=== PATIENT | male | born 2000 | race Caucasian/White ===

== ENCOUNTER 2021-05-03 07:47 | Outpatient (REF) | payer MEDICAID, SELFPAY ==
[2021-05-03 09:03] LABS: COVID-19 Test Positive (Negative); IDNOW Serial# 55D5AD1C
== END 2021-05-03 07:48 | disposition home or self-care (01) ==
LOC: HO.LAB 07:47
PROVIDERS: Visit Provider Internal Medicine
DX: Z20.822 Contact with and (suspected) exposure to COVID-19 (principal)
CPT/HCPCS: 36415; 87635; C9803

== ENCOUNTER 2021-08-11 13:47 | Emergency (ER) | payer MEDICAID, SELFPAY ==
[2021-08-11 14:48] VITALS: BP 125/66; PULSE 60; RESP 16; TEMP 35.9; O2SAT 100; BMI 23.7
[2021-08-11 17:02] VITALS: BP 115/78; PULSE 55; RESP 16; TEMP 36.6; O2SAT 100
--- NOTE | 2021-08-11 17:09 | ED.GENADULT ---
HPI - General Adult General Chief complaint: Wound/Laceration Stated complaint: Stepped on charlee nail Time Seen by Provider: 08/11/21 17:06 Source: patient Mode of arrival: ambulatory Limitations: no limitations History of Present Illness HPI narrative: 21-year-old male presents to ED for right foot stepped on charlee nail. Patient was at work and the nail went go to his shoes poke his middle toe. Patient took his shoes off there was slight bleeding at the superficial cut. Patient states nail did do not get stuck in his foot. Patient states when he felt poke he moves his foot immediately. Patient states nail was on the ground. Related Data Previous Rx's Medication Instructions Recorded ciprofloxacin HCl 500 mg tablet 500 mg PO Q12H 7 Days #14 tab 08/11/21 Allergies Allergy/AdvReac Type Severity Reaction Status Date / Time No Known Allergies Allergy Verified 08/11/21 14:47 [No Known Allergies*] Review of Systems Review of Systems: Stepped on charlee nail Yes all other systems are reviewed and are negative [facility] Past Medical History Medical History (Updated 08/11/21 @ 17:33 by COURTNEY Moy) Pneumothorax on right Social History Social History Advance Directives: No Physical Exam ED Vital Signs: Vital Signs - 24 hr 08/11/21 14:48 08/11/21 17:02 Temperature 96.6 F L 97.8 F Pulse Rate 60 55 Respiratory Rate 16 16 Blood Pressure 125/66 115/78 Pulse Oximetry 100 100 BMI result Body Mass Index 23.7 Const General: cooperative, healthy appearing, comfortable, no acute distress, well developed, alert, awake and Physically active Orientation/consciousness: oriented to person, oriented to place, oriented to time and patient oriented x3 HENMT Head: Yes normal to inspection, Yes No palpable skull fracture present, Yes normocephalic and Yes atraumatic Eyes General: appearance normal, both eyes and all related structures Neck Neck: Yes normal visual inspection, Yes full ROM, Yes no lymphadenopathy, Yes no meningeal signs, Yes trachea midline, Yes supple, No anterior neck swelling and No tender Chest Chest palpation & inspection: normal inspection of the chest and normal palpation of entire chest wall Resp Effort & Inspection: normal respiratory effort and able to speak in complete sentences Auscultation: clear to auscultation bilaterally Cardio Jugular venous distension: no JVD Heart sounds: S1 normal heart sound present and S2 normal heart sound present GI Inspection: Yes normal to inspection and No abdominal wall ecchymosis Palpation (GI): Soft to palpation, not firm, nontender, no guarding and not rigid General: No CVA tenderness and Yes no CVA tenderness Back/Spine/Pelvis Back: no CVA tenderness, No CVA tenderness and No back tenderness Skin General skin exam: no rashes or lesions noted and elasticity normal Neuro General: oriented to person, oriented to place, oriented to time, patient oriented x3, gait normal, no meningeal signs and CN's II-XI intact bilaterally Cranial nerves: Yes CN's II-XII intact bilaterally Extrem Ankle/foot/toe images: 1. Very small abrasion. Negative for puncture. Capillary refill intact. Patient has complete range of motion of toe. No other signs of trauma. Motor/neuro/vascular exam intact Psych Appearance: grossly normal, well kempt and not disheveled Course Course Course Narrative: Tdap ordered. Reevaluation(s) Reevaluation #1: No need for imaging. Only superficial abrasion of foot. Not suspecting foreign body. Patient will be discharged with [facility] Medical Decision Making MDM Narrative Medical decision making narrative: Abrasion Discharge Plan Discharge Clinical Impression: Abrasion Patient Disposition: Home, Self-Care Instructions: Abrasion (ED) Additional Instructions: Will be discharged with antibiotics. Return to the ED for any toe swelling, redness, pus discharge, foul odor, fever, or chills. Please follow-up with primary care provider Prescriptions: New ciprofloxacin HCl 500 mg tablet 500 mg PO Q12H 7 Days Qty: 14 0RF Referrals: [facility] [Provider Group] (Stepped on charlee nail.) Stand Alone Forms: Work/School Release Interventions: ED Discharge Assessment Last Done: 08/11/21 17:50 Discharge Date/Time: 08/11/21 17:54 Print Language: [place]
[2021-08-11] MEDS: Diphth,Pertus(ACell),Tet Adult 0.5 ML SYRINGE IM (17:17)
== END 2021-08-11 17:54 | disposition home or self-care (01) ==
PROVIDERS: Emergency Provider Internal Medicine
DX: S90.414A Abrasion, right lesser toe(s), initial encounter (principal); M79.671 Pain in right foot; Y28.9XXA Contact with unspecified sharp object, undetermined intent, initial encounter; Y93.9 Activity, unspecified; Y92.9 Unspecified place or not applicable; Y99.9 Unspecified external cause status
CPT/HCPCS: 90471; 90715; 96372; 99283; 99284

== ENCOUNTER 2021-09-04 06:08 | Emergency (ER) | payer MEDICAID, SELFPAY ==
--- NOTE | ~2021-09-04 | XR_ITS ---
EXAMINATION: XR CHEST CLINICAL INFORMATION: Cough COMPARISON: 11/09/2019 TECHNIQUE: Frontal view of the chest was obtained. FINDINGS: Lungs are well-inflated and clear. Trachea is midline in position. No interstitial disease, consolidation or mass. No pleural effusion or pneumothorax. Cardiac silhouette and pulmonary vessels are normal in size. The mediastinum and tracey have normal contour. The visualized bones and upper abdomen are unremarkable. XR/XR chest 1V IMPRESSION: No acute cardiopulmonary abnormality.
[2021-09-04 06:48] VITALS: BP 119/75; PULSE 101; RESP 22; TEMP 38.1; O2SAT 99; BMI 52.2
--- NOTE | 2021-09-04 07:07 | ED.GENADULT ---
HPI - General Adult General Chief complaint: General Medical Stated complaint: flu symptoms Time Seen by Provider: 09/04/21 06:37 Source: patient Mode of arrival: ambulatory Limitations: no limitations History of Present Illness MD complaint: flu symptoms Onset (ago): day(s) (1) Location: chest, upper extremity and lower extremity Radiation: non-radiation Severity: mild Quality: aching Pain Consistency: constant Relieving factors: other (OTC medications) Exacerbating factors: movement Associated symptoms: fever/chills, headaches, loss of appetite and malaise Treatments prior to arrival: none Related Data Previous Rx's Medication Instructions Recorded ciprofloxacin HCl 500 mg tablet 500 mg PO Q12H 7 Days #14 tab 08/11/21 ibuprofen 600 mg tablet 600 mg PO Q6H PRN #30 tab 09/04/21 ondansetron 4 mg disintegrating 4 mg PO Q8H PRN #20 tab 09/04/21 tablet oseltamivir 75 mg capsule (Tamiflu) 75 mg PO BID 5 Days #10 cap 09/04/21 Allergies Allergy/AdvReac Type Severity Reaction Status Date / Time No Known Allergies Allergy Verified 08/11/21 14:47 [No Known Allergies*] Review of Systems Review of Systems: Constitutional : positive Fever, positive Chills, positive fatigue, positive Malaise ENT/Mouth : positive sore throat, positive runny nose Eyes: No Discharge Cardiovascular : No Chest Pain, No SOB Respiratory : pos Cough, No Sputum Gastrointestinal : No Nausea, No Vomiting, No Diarrhea Genitourinary : No Dysuria, No Urinary Frequency Musculoskeletal : positive Myalgia Skin : No rash Neuro : pos Headache PMFSH Past Medical History Attestation statement: The following information was validated with the patient. Medical History Pneumothorax on right Social History Social History (Updated 09/04/21 @ 07:33 by Sera Au DO) Patient Tobacco Use Status: Never used Tobacco Advance Directives: No Advance Directives Information Provided: Yes Physical Exam ED Vital Signs: Vital Signs - 24 hr 09/04/21 06:48 Temperature 100.6 F H Pulse Rate 101 H Respiratory Rate 22 H Blood Pressure 119/75 Pulse Oximetry 99 BMI result Body Mass Index 52.2 Appearance: Alert. Oriented X3. No acute distress. Eyes: Pupils equal, round and reactive to light. ENT: Pharynx normal. Neck: Normal inspection. Neck supple. CVS: tachycardia heart rate and rhythm. Pulses normal. Respiratory: No respiratory distress. Breath sounds normal. Abdomen: Soft and non-tender. Skin: Skin warm and dry. Normal skin color. Normal skin turgor. Extremities: No lower extremity edema. No calf ttp Neuro: Oriented X 3. No motor deficit. No sensory deficit. Medical Decision Making MDM Narrative Medical decision making narrative: 21 yo male hx of PTX here with flu like illness not toxic no resp distress does feel chest is tight + for flu A able to tolerate PO at home - at this time in window for tamiflu. CXR given chest tightness and hx of PTX. Able to be managed as outpatient. Lab Data Labs: Lab Results 09/04/21 09/04/21 Range/Units 06:42 06:42 COVID-19 (EDY) Negative (Negative) COVID-19 Clin Com See Note Influenza Type A (KEISHA) Positive A (Negative) Influenza Type B (KEISHA) Negative (Negative) Influenza A & B Note See Note Discharge Plan Discharge Clinical Impression: Influenza A Patient Disposition: Home, Self-Care Instructions: Influenza (ED) Additional Instructions: return to ED for any worsening symptoms or concerns CHEST xray negative Prescriptions: New ibuprofen 600 mg tablet 600 mg PO Q6H PRN (Reason: pain) Qty: 30 0RF ondansetron 4 mg tablet,disintegrating 4 mg PO Q8H PRN (Reason: nausea and vomiting) Qty: 20 0RF oseltamivir [Tamiflu] 75 mg capsule 75 mg PO BID 5 Days Qty: 10 0RF No Action ciprofloxacin HCl 500 mg tablet 500 mg PO Q12H 7 Days Qty: 14 0RF Stand Alone Forms: Work/School Release
[2021-09-04 07:09] LABS: COVID-19 Test Negative (Negative); IDNOW Serial# 16C4AD1C; Influenza A Positive (Negative); Influenza B2 Negative (Negative)
[2021-09-04] MEDS: Ibuprofen 600 MG TABLET PO (07:21)
== END 2021-09-04 08:09 | disposition home or self-care (01) ==
PROVIDERS: Emergency Provider Emergency Medicine
DX: J10.1 Influenza due to other identified influenza virus with other respiratory manifestations (principal); Z20.822 Contact with and (suspected) exposure to COVID-19
CPT/HCPCS: 71045; 87502; 87635; 99283

== ENCOUNTER 2023-04-07 12:15 | Emergency (ER) | payer MEDICAID, SELFPAY ==
--- NOTE | ~2023-04-07 | XR_ITS ---
EXAMINATION: XR CHEST 2 VIEW CLINICAL INFORMATION: Chest pressure COMPARISON: 09/04/2021 TECHNIQUE: PA and lateral views of the chest obtained. FINDINGS: The lungs are clear. There are no pleural effusions. The cardiomediastinal silhouette is normal. XR/XR chest 2V IMPRESSION: No acute cardiopulmonary disease.
--- NOTE | 2023-04-07 12:17 | ECG_ITS ---
Test Reason : CHEST PRESSURE Blood Pressure : / mmHG Vent. Rate : 110 BPM Atrial Rate : 110 BPM P-R Int : 174 ms QRS Dur : 104 ms QT Int : 318 ms P-R-T Axes : 082 087 041 degrees QTc Int : 430 ms Sinus tachycardia Incomplete right bundle branch block Nonspecific T wave abnormality Abnormal ECG No previous ECGs available Referred By: Meghan Mari Electronically Signed By:SWAPNIL CASTAÑEDA
[2023-04-07 13:05] VITALS: BP 131/87; PULSE 72; RESP 18; TEMP 36.8; O2SAT 100; BMI 25.6
--- NOTE | 2023-04-07 13:05 | ED_ITS ---
HPI - General Adult General Chief complaint: Chest Pain Stated complaint: Chest pressure Time Seen by Provider: 04/07/23 19:24 Source: patient Mode of arrival: ambulatory Limitations: no limitations History of Present Illness HPI narrative: Patient is a 22-year-old male with history of spontaneous pneumothorax presenting to the emergency department with complaint of chest pressure and palpitations since last night. States palpitations occurred last night, but have since resolved, pressure has persisted. Denies chest pain or shortness of breath. Denies cough, fever, chills. Denies nausea or vomiting. Denies recent calf pain or swelling. MD complaint: chest pressure Onset (ago): hour(s) Location: chest Severity: mild Quality: other (pressure) Relieving factors: none Exacerbating factors: none Associated symptoms: denies other symptoms Treatments prior to arrival: none Related Data Previous Rx's Medication Instructions Recorded ciprofloxacin HCl 500 mg tablet 500 mg PO Q12H 7 days #14 tabs 08/11/21 ibuprofen 600 mg tablet 600 mg PO Q6H PRN pain #30 tabs 09/04/21 ondansetron 4 mg disintegrating 4 mg PO Q8H PRN nausea and 09/04/21 tablet vomiting #20 tabs oseltamivir 75 mg capsule (Tamiflu) 75 mg PO BID 5 days #10 caps 09/04/21 Allergies Allergy/AdvReac Type Severity Reaction Status Date / Time No Known Allergies Allergy Verified 08/11/21 14:47 [No Known Allergies*] Review of Systems 2 Review of Systems: As per HPI Yes all other systems are reviewed and are negative Constitutional: Constitutional: Reports as per HPI [facility] Past Medical History Medical History Pneumothorax on right Social History Social History (Updated 09/04/21 @ 07:33 by Edwige Au DO) Patient Tobacco Use Status: Never used Tobacco Physical Exam ED Vital Signs: Vital Signs - 24 hr 04/07/23 13:05 04/07/23 18:46 Temperature 98.2 F 98.2 F Pulse Rate 72 81 Respiratory Rate 18 18 Blood Pressure 131/87 147/86 H Pulse Oximetry 100 99 Oxygen Delivery Method Room Air Room Air BMI result Body Mass Index 25.6 Vital signs have been reviewed and appear to be correct. Blood pressure normal. Heart rate normal. Respiratory rate normal. Temperature normal. Oxygen saturation normal. Const General: cooperative, healthy appearing and no acute distress Orientation/consciousness: oriented to person, oriented to place, oriented to time and patient oriented x3 Limitations: no limitations HENMT Head: Yes normocephalic and Yes atraumatic Ears: external ears normal General nose exam: Normal external nose present Face and sinus: Yes face symmetric Mouth: oropharynx normal and moist mucous membranes Throat: Yes uvula midline Eyes Pupils: Equal, round and reactive pupils present Neck Neck: Yes normal visual inspection and Yes supple Resp Effort & Inspection: normal respiratory effort and able to speak in complete sentences Auscultation: clear to auscultation bilaterally Cardio Rate: regular rate Rhythm: regular rhythm Heart sounds: S1 normal heart sound present and S2 normal heart sound present GI Palpation (GI): Soft to palpation and nontender Auscultation: normoactive bowel sounds General: Yes no CVA tenderness Back/Spine/Pelvis Back: no CVA tenderness Skin General skin exam: elasticity normal and turgor normal Neuro General: oriented to person, oriented to place, oriented to time, patient oriented x3, moves all extremities, no focal motor deficits and CN's II-XI intact bilaterally Cranial nerves: Yes Equal, round and reactive pupils present Cognition (Neuro): normal cognition Extrem General: Yes full ROM, Yes no pedal edema and Yes no calf tenderness Psych Mental Status: mental status grossly normal Affect: normal affect Thought process: Normal thought process present Medical Decision Making Medical Decision Making MDM Narrative: Patient is a 22-year-old male with history of spontaneous pneumothorax presenting to the emergency department with complaint of chest pressure and palpitations since last night. On exam patient is awake, A+Ox3, VS WNL, afebrile, normal neurological exam without focal deficits, physical exam findings as above. Given reported symptoms and physical exam findings, initial differential includes pneumothorax, cardiac dysrhythmia, electrolyte abnormality, pneumonia. Less likely ACS but will obtain EKG and troponin. Labs notable for no leukocytosis, no anemia, no significant electrolyte abnormalities, negative troponin. HEART score of 1. EKG shows sinus tachycardia. X-ray notable for no evidence of pneumothorax or pneumonia. My interpretation is in agreement with the radiologist's interpretation. All results discussed with patient all questions answered. Feel patient is stable for discharge home with follow-up with PCP this week. Return precautions discussed. Patient verbalized understanding agreement with plan. Differential Diagnosis Differential Diagnoses: The differential diagnosis associated with the presentation includes As per MDM. Admission/Observation Consideration of admission/observation: Escalation of care including admission/observation considered Lab Data [facility] Lab Attestation statement: I reviewed the patient's lab results. As per MDM. 04/07/23 13:51 04/07/23 13:51 Labs: Lab Results 04/07/23 Range/Units 13:51 WBC 5.8 (4.8-10.8) X10*3/uL RBC 5.55 (4.60-5.80) X10*6/uL Hgb 15.9 (14.0-18.0) g/dl Hct 46.6 (42.0-52.0) % MCV 84.0 (80.0-98.0) fL MCH 28.6 (27.0-33.0) pg MCHC 34.1 (31.0-36.0) g/dl RDW 11.9 (11.0-16.0) % Plt Count 308 (160-400) X10*3/uL MPV 9.3 L (9.4-12.4) fL Immature Gran % (Auto) 0.2 (0.0-0.4) % Neut % (Auto) 58.1 (45-73) % Lymph % (Auto) 29.9 (20-40) % [place] % (Auto) 9.9 (2-11) % Eos % (Auto) 1.0 (0-4) % Baso % (Auto) 0.9 (0-2) % Lymph # (Auto) 1.7 (1.2-4.9) X10*3/uL [place] # (Auto) 0.6 (0.1-1.2) X10*3/uL Eos # (Auto) 0.1 (0.0-0.4) X10*3/uL Baso # (Auto) 0.1 (0.0-0.2) X10*3/uL Abs Immat Gran (auto) 0.01 (0.00-0.03) X10*3/uL Absolute Neuts (auto) 3.4 (2.0-8.3) x10*3/uL Absolute Nucleated RBC 0.000 (0.0-0.012) X10*3/uL Nucleated RBC % (auto) 0.0 (0.0-0.2) /100WBC Sodium 136 (135-145) mmol/L Potassium 3.8 (3.3-5.1) mmol/L Chloride 101 (96-108) mmol/L Carbon Dioxide 26 (22-29) mmol/L Anion Gap 13 (12-20) BUN 11 (9-16) mg/dL Creatinine 0.90 (0.5-1.4) mg/dL Estim Creat Clear Calc 140.1 Estimated GFR > 60 Random Glucose 94 (60-115) mg/dL Calcium 9.8 (8.4-10.2) mg/dL Troponin I High Sens < 2.7 (<3.5-35.0) ng/L Independent Interpretation I performed an independent interpretation of an: EKG (Sinus tachycardia with incomplete RBBB, rate 110 beats per minute, normal WI and QT intervals) and Plain X-Ray (No evidence of pneumonia or pneumothorax) Radiology Impression Discussion of test interpretation with radiology: I have reviewed the radiologist's reading. Radiologist Impression: XR/XR chest 2V IMPRESSION: No acute cardiopulmonary disease. External Record Review External record reviewed: Inpatient record, Office record and Outpatient record Scores Heart Score History: -0- slightly suspicious ECG: -1- non specific repolarization disturbance Age: -0- < or = 45 Risk factory: -0- no risk factors known Troponin: -0- < or = normal limit Score: 1 Risk: 1.7% Discharge Plan Discharge Clinical Impression: Chest pressure Patient Disposition: Home, Self-Care Instructions: Chest Pain (DC) Additional Instructions: You were evaluated in the emergency department today for chest pressure. Your evaluation including labs, EKG, and chest x-ray has shown no signs of medical conditions requiring emergent intervention at this time, however we recommend that you follow-up with your primary care physician as soon as possible for further testing as an outpatient. Return to the emergency department if you experience worsening or uncontrolled chest pain, shortness of breath, lightheadedness, feeling faint, loss of consciousness, nausea, vomiting, or any other concerning symptoms. Prescriptions: No Action ciprofloxacin HCl 500 mg tablet 500 mg PO Q12H 7 Days Qty: 14 0RF ibuprofen 600 mg tablet 600 mg PO Q6H PRN (Reason: pain) Qty: 30 0RF ondansetron 4 mg tablet,disintegrating 4 mg PO Q8H PRN (Reason: nausea and vomiting) Qty: 20 0RF oseltamivir [Tamiflu] 75 mg capsule 75 mg PO BID 5 Days Qty: 10 0RF Stand Alone Forms: Work/School Release Interventions: ED Discharge Assessment Last Done: 04/07/23 19:30
[2023-04-07 14:04] LABS: MANUAL DIFF FLAG NO
[2023-04-07 14:08] LABS: Basophils Absolute Auto 0.1 X10*3/uL (0.0-0.2); Basophils Percent Auto 0.9 % (0-2); Eosinophils Absolute Auto 0.1 X10*3/uL (0.0-0.4); Hematocrit 46.6 % (42.0-52.0); Hemoglobin 15.9 g/dl (14.0-18.0); Imm Gran Abs Auto 0.01 X10*3/uL (0.00-0.03); Imm Gran Pct Auto 0.2 % (0.0-0.4); Lymphocytes Absolute Auto 1.7 X10*3/uL (1.2-4.9); Lymphocytes Percent Auto 29.9 % (20-40); Mean Corpuscular HGB Conc 34.1 g/dl (31.0-36.0); Mean Corpuscular Hemoglobin 28.6 pg (27.0-33.0); Mean Platelet Volume 9.3 fL (9.4-12.4); Monocytes Absolute Auto 0.6 X10*3/uL (0.1-1.2); Monocytes Percent Auto 9.9 % (2-11); Neutrophils Absolute Auto 3.4 x10*3/uL (2.0-8.3); Neutrophils Percent Auto 58.1 % (45-73); Platelet Count 308 X10*3/uL (160-400); Red Blood Count 5.55 X10*6/uL (4.60-5.80); Red Cell Distribution Width 11.9 % (11.0-16.0); White Blood Count 5.8 X10*3/uL (4.8-10.8)
[2023-04-07 14:17] LABS: Anion Gap 13 (12-20); Blood Urea Nitrogen 11 mg/dL (9-16); Calcium 9.8 mg/dL (8.4-10.2); Carbon Dioxide 26 mmol/L (22-29); Chloride 101 mmol/L (96-108); Creatinine Clr Calc Pharmacy 140.1; Estimated Glomerular Filt Rate > 60; Glucose Random 94 mg/dL (60-115); Potassium 3.8 mmol/L (3.3-5.1); Sodium 136 mmol/L (135-145)
[2023-04-07 14:27] LABS: Troponin-I High Sensitivity < 2.7 ng/L (<3.5-35.0)
[2023-04-07 18:46] VITALS: BP 147/86; PULSE 81; RESP 18; TEMP 36.8; O2SAT 99
== END 2023-04-07 19:39 | disposition home or self-care (01) ==
PROVIDERS: Registered Nurse Emergency; Emergency Provider Student in an Organized Health Care Education/Training Program
DX: R07.89 Other chest pain (principal); R00.2 Palpitations; Z79.899 Other long term (current) drug therapy
CPT/HCPCS: 36415; 71046; 80048; 84484; 85025; 93005; 99283

== ENCOUNTER → 2023-04-07 12:17 | Outpatient (BNV) | payer MEDICAID, SELFPAY | PROVIDERS: Visit Provider Internal Medicine | DX: R00.0 Tachycardia, unspecified (principal); R94.31 Abnormal electrocardiogram [ECG] [EKG] | CPT/HCPCS: 93010 ==

== ENCOUNTER 2023-04-09 08:26 | Emergency (ER) | payer MEDICAID, SELFPAY ==
--- NOTE | ~2023-04-09 | XR_ITS ---
EXAMINATION: XR CHEST CLINICAL INFORMATION: Chest tightness. COMPARISON: 04/07/2023 TECHNIQUE: 2 views of the chest were obtained. FINDINGS: The lungs are well expanded. No focal consolidation. No pleural effusion. Cardiac silhouette is within normal limits. XR/XR chest 2V IMPRESSION: No acute abnormality.
[2023-04-09 08:44] VITALS: BP 135/81; PULSE 80; RESP 16; TEMP 36.6; O2SAT 100; BMI 25.8
--- NOTE | 2023-04-09 09:05 | ECG_ITS ---
Test Reason : chest pain Blood Pressure : / mmHG Vent. Rate : 073 BPM Atrial Rate : 073 BPM P-R Int : 172 ms QRS Dur : 104 ms QT Int : 370 ms P-R-T Axes : 077 073 014 degrees QTc Int : 407 ms Normal sinus rhythm Incomplete right bundle branch block Nonspecific T wave abnormality Abnormal ECG When compared with ECG of 07-APR-2023 12:20, Vent. rate has decreased BY 37 BPM T wave inversion no longer evident in Anterior leads Referred By: Generic ED Physician Electronically Signed By:SWAPNIL CASTAÑEDA
[2023-04-09 09:19] LABS: MANUAL DIFF FLAG NO
[2023-04-09 09:24] LABS: Basophils Percent Auto 0.6 % (0-2); Eosinophils Absolute Auto 0.1 X10*3/uL (0.0-0.4); Eosinophils Percent Auto 2.2 % (0-4); Hematocrit 44.3 % (42.0-52.0); Hemoglobin 15.2 g/dl (14.0-18.0); Imm Gran Abs Auto 0.01 X10*3/uL (0.00-0.03); Imm Gran Pct Auto 0.2 % (0.0-0.4); Lymphocytes Absolute Auto 1.5 X10*3/uL (1.2-4.9); Lymphocytes Percent Auto 31.4 % (20-40); Mean Corpuscular HGB Conc 34.3 g/dl (31.0-36.0); Mean Corpuscular Hemoglobin 28.5 pg (27.0-33.0); Mean Platelet Volume 9.1 fL (9.4-12.4); Monocytes Absolute Auto 0.4 X10*3/uL (0.1-1.2); Monocytes Percent Auto 7.5 % (2-11); Neutrophils Absolute Auto 2.7 x10*3/uL (2.0-8.3); Neutrophils Percent Auto 58.1 % (45-73); Platelet Count 291 X10*3/uL (160-400); Red Blood Count 5.34 X10*6/uL (4.60-5.80); Red Cell Distribution Width 11.9 % (11.0-16.0); White Blood Count 4.7 X10*3/uL (4.8-10.8)
[2023-04-09 09:38] LABS: Alanine Aminotransferase 45 U/L (0-40); Albumin Level 4.7 g/dL (3.5-5.0); Alkaline Phosphatase 62 U/L (39-117); Anion Gap 15 (12-20); Aspartate Amino Transferase 25 U/L (5-37); Bilirubin Direct 0.2 mg/dL (0.0-0.5); Bilirubin Total 0.6 mg/dL (0.0-1.0); Blood Urea Nitrogen 10 mg/dL (9-16); Calcium 9.9 mg/dL (8.4-10.2); Carbon Dioxide 27 mmol/L (22-29); Chloride 103 mmol/L (96-108); Creatinine Clr Calc Pharmacy 137.3; Estimated Glomerular Filt Rate > 60; Glucose Random 111 mg/dL (60-115); Lipase 14 U/L (8-78); Potassium 3.7 mmol/L (3.3-5.1); Sodium 141 mmol/L (135-145); Total Protein 7.9 g/dL (6.5-8.0)
[2023-04-09 09:47] LABS: Troponin-I High Sensitivity < 2.7 ng/L (<3.5-35.0)
[2023-04-09 10:05] LABS: Influenza A PCR NEGATIVE (Negative); Influenza B PCR NEGATIVE (Negative); Resp Syncy Virus RNA Qual PCR NEGATIVE (Negative); SARS COV2 PCR INHOUSE NEGATIVE (Negative)
== END 2023-04-09 19:41 | disposition left against medical advice (07) ==
PROVIDERS: Emergency Provider Emergency Medicine
DX: R07.89 Other chest pain (principal); Z20.822 Contact with and (suspected) exposure to COVID-19; Z20.828 Contact with and (suspected) exposure to other viral communicable diseases; Z53.21 Procedure and treatment not carried out due to patient leaving prior to being seen by health care provider
CPT/HCPCS: 0241U; 71046; 80048; 80076; 83690; 84484; 85025; 93005; 99283

== ENCOUNTER → 2023-04-09 09:05 | Outpatient (BNV) | payer MEDICAID, SELFPAY | PROVIDERS: Visit Provider Internal Medicine | DX: R94.31 Abnormal electrocardiogram [ECG] [EKG] (principal) | CPT/HCPCS: 93010 ==

== ENCOUNTER 2023-04-11 20:40 | Emergency (ER) | payer MEDICAID, SELFPAY ==
--- NOTE | 2023-04-11 | ECG_ITS ---
Test Reason : CHESY PAIN Blood Pressure : / mmHG Vent. Rate : 119 BPM Atrial Rate : 000 BPM P-R Int : 000 ms QRS Dur : 108 ms QT Int : 320 ms P-R-T Axes : 000 081 063 degrees QTc Int : 451 ms Sinus tachycardia Incomplete right bundle branch block Nonspecific ST abnormality Prolonged QT Abnormal ECG When compared with ECG of 09-APR-2023 09:11, Vent. rate has increased BY 46 BPM Nonspecific T wave abnormality no longer evident in Lateral leads Referred By: Generic ED Physician Electronically Signed By:SWAPNIL CASTAÑEDA
--- NOTE | ~2023-04-11 | CT_ITS ---
EXAMINATION: CT ANGIOGRAM OF THE CHEST WITH AND WITHOUT CONTRAST (CT PULMONARY ANGIOGRAM FOR PE) CLINICAL INFORMATION: Chest discomfort, tachy, palps, arrhythmia COMPARISON: Radiographs from the same date TECHNIQUE: Prior to contrast administration, noncontrast localization images were obtained. Subsequently, multidetector volumetric imaging was performed from the thoracic inlet to below the diaphragms following the administration of 80 mL Omnipaque 350 intravenous contrast. No contrast reaction reported Sagittal, coronal, and MIP oblique sagittal reformatted images were obtained on the CT workstation, uploaded to PACS, and reviewed. This CT examination was performed using dose optimization techniques as appropriate, variously including the following: *Automated exposure control *Adjustment of mA and/or kV according to patient size (this includes techniques or standardized protocols for targeted exams where dose is matched to indication/reason for exam; i.e. extremities or head) *Use of iterative reconstruction technique Total exam dose-length product 273 mGy-cm FINDINGS: QUALITY OF STUDY/CONTRAST BOLUS: Satisfactory. PULMONARY ARTERIES: No pulmonary emboli. THORACIC AORTA: No aneurysm. LUNG: No focal consolidation, nodules or masses. PLEURA: No pleural effusion or pneumothorax. MEDIASTINUM: Normal heart size. No pericardial effusion. No hilar or mediastinal lymphadenopathy. No evidence of septal bowing or right heart strain. 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 CORONARY ARTERY CALCIFICATION: None visualized on this study. CHEST WALL/AXILLA: No axillary or internal mammary lymphadenopathy. OSSEOUS STRUCTURES: No acute or suspicious osseous abnormality. UPPER ABDOMEN: Unremarkable. No reflux of contrast into the hepatic veins to suggest elevated right heart pressures. CT/CT angio chest PE protocol IMPRESSION: 1. No evidence of pulmonary embolism. 2. No acute pulmonary findings. VTE: negative.
--- NOTE | ~2023-04-11 | XR_ITS ---
EXAMINATION: XR CHEST CLINICAL INFORMATION: Shortness of breath COMPARISON: 04/09/2023 TECHNIQUE: 2 views of the chest were obtained. FINDINGS: No focal consolidation, pulmonary edema, or pleural effusion. Stable cardiomediastinal silhouette. XR/XR chest 2V IMPRESSION: No acute cardiopulmonary findings.
--- NOTE | 2023-04-11 20:44 | PC.NURSE ---
Pt presented stating he feels his heart is racing. Vitals checked, HR 115, O2 100% on room air. EKG and lab work ordered. Pt sent back to waiting room
[2023-04-11 21:01] VITALS: BP 151/87; PULSE 124; RESP 18; TEMP 36.7; O2SAT 100; BMI 26.8
--- NOTE | 2023-04-11 21:19 | ED_ITS ---
HPI - Chest Pain General Chief Complaint: Chest Pain Stated Complaint: rapid heart rate Time Seen by Provider: 04/11/23 21:08 Source: patient and family Mode of arrival: ambulatory History of Present Illness HPI narrative: 23-year-old male without significant past medical history, no cardiac history and no family history of cardiac disease, no history of joint laxity, not on a prescribed medications, no history of anxiety, denies any current stress in his life to include no issues at work (works at [employer]), denies alcohol or drug use, does report drinking a lot of soda . States that for the past several days intermittent palpitations and when these occur he experiences chest discomfort and some mild dizziness, patient states he is mildly dizzy today. He denies shortness of breath. Related Data Previous Rx's Medication Instructions Recorded ciprofloxacin HCl 500 mg tablet 500 mg PO Q12H 7 days #14 tabs 08/11/21 ibuprofen 600 mg tablet 600 mg PO Q6H PRN pain #30 tabs 09/04/21 ondansetron 4 mg disintegrating 4 mg PO Q8H PRN nausea and 09/04/21 tablet vomiting #20 tabs oseltamivir 75 mg capsule (Tamiflu) 75 mg PO BID 5 days #10 caps 09/04/21 Allergies Allergy/AdvReac Type Severity Reaction Status Date / Time No Known Allergies Allergy Verified 04/09/23 08:47 [No Known Allergies*] Review of Systems 2 Review of Systems: Pertinent positives and negatives as stated in HPI [facility]LY [facility] Past Medical History Source: nursing notes reviewed Medical History Pneumothorax on right Social History Social History Alcohol intake: never Patient Tobacco Use Status: Never used Tobacco Smoked in Last 30 Days: No Use of substances other than those prescribed or required for medical reasons: No Advance Directives: No Advance Directives Information Provided: Yes Physical Exam 2 Vital Signs: Vital Signs: Last Vital Signs Temp 98.1 F 04/11/23 21:01 Pulse 96 04/11/23 23:32 Resp 17 04/11/23 23:07 BP 151/97 H 04/11/23 23:32 Pulse Ox 100 04/11/23 23:07 O2 Del Method Room Air 04/11/23 23:07 BMI result Body Mass Index 26.8 VITAL SIGNS: Reviewed. GENERAL: Well developed, well nourished, in no acute distress. HEAD: Normocephalic/atraumatic EYES: PERRLA, EOMI EARS: Ext canals without abnormality NOSE: Nares patent bilateral OROPHARYNX: no oral lesions noted, posterior pharynx clear NECK: Supple, no adenopathy LUNGS: Normal breath sounds. No adventitious sounds or accessory muscle use. SpO2<100> CARDIOVASCULAR: Tachycardic rate and rhythm without noted murmurs, no JVD or lower extremity edema. ABDOMEN: Soft, non-tender, non-distended with bowel sounds. MUSCULOSKELETAL: No tenderness, deformities, or effusions noted on gross inspection. EXTREMITIES: No cyanosis, clubbing or edema. SKIN: Inspection of the skin reveals no rashes NEUROLOGIC: Alert and oriented x 4. Strength and sensation to light touch were grossly intact x 4. Medications Administered Discontinued Medications Generic Name Dose Route Start Last Admin Trade Name Freq PRN Reason Stop Dose Admin Iohexol 100 ml 04/11/23 22:19 04/11/23 22:19 Iohexol 350 Mg/Ml 100 Ml Infus..Btl IV 04/11/23 22:20 65 ml ONCE ONE Administration Potassium Chloride 60 meq 04/11/23 23:12 04/11/23 23:26 Potassium Chloride Er 20 Meq Tab.Er.Prt PO 04/11/23 23:13 60 meq ONCE ONE Administration Medical Decision Making Medical Decision Making MDM Narrative: 23-year-old male with history and clinical presentation, DDX: Lower clinical suspicion for anxiety as patient has obvious EKG changes, there does not appear to be a viral etiology but will evaluate for the presence of COVID/influenza, no suspicion for pericarditis or myocarditis. Chest x-ray appears without acute findings, patient does have a history of spontaneous pneumothorax in the 10th grade, given EKG findings I do have some concerns for possible aortic pathology though there were no noted murmurs, he is not hypoxic and otherwise appears well. I reviewed all investigations and hematologic indices are negative for leukocytosis or left shift, there is no anemia or thrombocytopenia. Chemistry indices do not demonstrate an KISHAN, there is a noted potassium-3.1 which will be repleted with 60 mEq of potassium chloride as magnesium levels are within normal limits. High sensitivity troponin is undetectable. Urine toxicology is negative, viral testing is negative for COVID-19/influenza. Repeat EKG shows resumption of prior rhythm, will pursue orthostatics as there is a possibility that patient has POTS. Will also provide patient with a referral to Cardiology. Orthostatics without change in heart rate. All results and findings discussed with patient at bedside and he understands that he has a referral and will call cardiology on Thursday morning. Differential Diagnosis Differential Diagnoses: The differential diagnosis associated with the presentation includes Please see the discussion above Admission/Observation Consideration of admission/observation: Escalation of care including admission/observation considered Please see the discussion above Lab Data MDM Lab Attestation statement: I reviewed the patient's lab results. Please see the discussion above 04/11/23 21:18 04/11/23 21:17 Labs: Lab Results 04/11/23 04/11/23 04/11/23 Range/Units 21:17 21:18 22:18 WBC 6.6 (4.8-10.8) X10*3/uL RBC 5.38 (4.60-5.80) X10*6/uL Hgb 15.4 (14.0-18.0) g/dl Hct 43.9 (42.0-52.0) % MCV 81.6 (80.0-98.0) fL MCH 28.6 (27.0-33.0) pg MCHC 35.1 (31.0-36.0) g/dl RDW 11.9 (11.0-16.0) % Plt Count 334 (160-400) X10*3/uL MPV 9.3 L (9.4-12.4) fL Immature Gran % (Auto) 0.2 (0.0-0.4) % Neut % (Auto) 44.0 L (45-73) % Lymph % (Auto) 44.4 H (20-40) % [place] % (Auto) 8.2 (2-11) % Eos % (Auto) 2.3 (0-4) % Baso % (Auto) 0.9 (0-2) % Lymph # (Auto) 2.9 (1.2-4.9) X10*3/uL [place] # (Auto) 0.5 (0.1-1.2) X10*3/uL Eos # (Auto) 0.2 (0.0-0.4) X10*3/uL Baso # (Auto) 0.1 (0.0-0.2) X10*3/uL Abs Immat Gran (auto) 0.01 (0.00-0.03) X10*3/uL Absolute Neuts (auto) 2.9 (2.0-8.3) x10*3/uL Absolute Nucleated RBC 0.000 (0.0-0.012) X10*3/uL Nucleated RBC % (auto) 0.0 (0.0-0.2) /100WBC Sodium 139 (135-145) mmol/L Potassium 3.1 L (3.3-5.1) mmol/L Chloride 105 (96-108) mmol/L Carbon Dioxide 20 L (22-29) mmol/L Anion Gap 17 (12-20) BUN 12 (9-16) mg/dL Creatinine 0.93 (0.5-1.4) mg/dL Estim Creat Clear Calc 134.4 Estimated GFR > 60 Random Glucose 174 H (60-115) mg/dL Calcium 9.9 (8.4-10.2) mg/dL Magnesium 2.1 (1.6-2.6) mg/dL Total Bilirubin 0.3 (0.0-1.0) mg/dL AST 24 (5-37) U/L ALT 48 H (0-40) U/L Alkaline Phosphatase 80 (39-117) U/L Troponin I High Sens < 2.7 (<3.5-35.0) ng/L Total Protein 8.6 H (6.5-8.0) g/dL Albumin 5.0 (3.5-5.0) g/dL Urine Color Yellow Urine Appearance Clear Urine pH 7.0 (5.0-9.0) Ur Specific [place] <= 1.005 (1.005-1.025) Urine Protein Negative (Neg-Trace) mg/dL Urine Glucose (UA) Negative (Negative) mg/dL Urine Ketones Negative (Negative) mg/dL Urine Blood Negative (Negative) Urine Nitrite Negative (Negative) Ur Leukocyte Esterase Negative (Negative) Urine Opiates Screen Not Detected (Not Detect) Urine Fentanyl Screen Not Detected (Not Detect) Ur Barbiturates Screen Not Detected (Not Detect) Ur Phencyclidine Scrn Not Detected (Not Detect) Ur Amphetamines Screen Not Detected (Not Detect) U Benzodiazepines Scrn Not Detected (Not Detect) Urine Cocaine Screen Not Detected (Not Detect) U Marijuana (THC) Screen Not Detected (Not Detect) COVID-19 (EDY) Negative (Negative) COVID-19 Clin Com See Note Influenza Type A (KEISHA) Negative (Negative) Influenza Type B (KEISHA) Negative (Negative) Influenza A & B Note See Note Independent Interpretation I performed an independent interpretation of an: EKG Interpretation: 2048: Accelerated junctional rhythm, HR-119, no STEMI, nonspecific ST abnormality, QRS-108, QTC-576, QT-410. 2320: Normal sinus rhythm, HR-83, no STEMI, incomplete right bundle branch block, nonspecific T-wave abnormality Radiology Impression Discussion of test interpretation with radiology: I have reviewed the radiologist's reading. Radiologist Impression: Please see the discussion above External Record Review External record reviewed: Outpatient record, Prior outpatient labs and Prior outpatient radiology Discharge Plan Discharge Clinical Impression: Palpitations Patient Disposition: Home, Self-Care Instructions: Heart Palpitations (ED), Potassium Content of Foods List (ED), Hypokalemia (ED) Additional Instructions: 1. You have been given a referral to follow-up with Cardiology, please call the office on Thursday morning to set up an appointment for evaluation. 2. At your earliest convenience you need to establish care with a primary care provider. Return to the ER for any worsening symptoms. Prescriptions: No Action ciprofloxacin HCl 500 mg tablet 500 mg PO Q12H 7 Days Qty: 14 0RF ibuprofen 600 mg tablet 600 mg PO Q6H PRN (Reason: pain) Qty: 30 0RF ondansetron 4 mg tablet,disintegrating 4 mg PO Q8H PRN (Reason: nausea and vomiting) Qty: 20 0RF oseltamivir [Tamiflu] 75 mg capsule 75 mg PO BID 5 Days Qty: 10 0RF Referrals: Thanh Crawley MD [Physician] -
[2023-04-11 21:24] LABS: MANUAL DIFF FLAG NO
[2023-04-11 21:26] LABS: Basophils Absolute Auto 0.1 X10*3/uL (0.0-0.2); Basophils Percent Auto 0.9 % (0-2); Eosinophils Absolute Auto 0.2 X10*3/uL (0.0-0.4); Eosinophils Percent Auto 2.3 % (0-4); Hematocrit 43.9 % (42.0-52.0); Hemoglobin 15.4 g/dl (14.0-18.0); Imm Gran Abs Auto 0.01 X10*3/uL (0.00-0.03); Imm Gran Pct Auto 0.2 % (0.0-0.4); Lymphocytes Absolute Auto 2.9 X10*3/uL (1.2-4.9); Lymphocytes Percent Auto 44.4 % (20-40); Mean Corpuscular HGB Conc 35.1 g/dl (31.0-36.0); Mean Corpuscular Hemoglobin 28.6 pg (27.0-33.0); Mean Corpuscular Volume 81.6 fL (80.0-98.0); Mean Platelet Volume 9.3 fL (9.4-12.4); Monocytes Absolute Auto 0.5 X10*3/uL (0.1-1.2); Monocytes Percent Auto 8.2 % (2-11); Neutrophils Absolute Auto 2.9 x10*3/uL (2.0-8.3); Platelet Count 334 X10*3/uL (160-400); Red Blood Count 5.38 X10*6/uL (4.60-5.80); Red Cell Distribution Width 11.9 % (11.0-16.0); White Blood Count 6.6 X10*3/uL (4.8-10.8)
[2023-04-11 21:41] LABS: Alanine Aminotransferase 48 U/L (0-40); Alkaline Phosphatase 80 U/L (39-117); Anion Gap 17 (12-20); Aspartate Amino Transferase 24 U/L (5-37); Bilirubin Total 0.3 mg/dL (0.0-1.0); Blood Urea Nitrogen 12 mg/dL (9-16); Calcium 9.9 mg/dL (8.4-10.2); Carbon Dioxide 20 mmol/L (22-29); Chloride 105 mmol/L (96-108); Creatinine Clr Calc Pharmacy 134.4; Estimated Glomerular Filt Rate > 60; Glucose Random 174 mg/dL (60-115); Magnesium 2.1 mg/dL (1.6-2.6); Potassium 3.1 mmol/L (3.3-5.1); Sodium 139 mmol/L (135-145); Total Protein 8.6 g/dL (6.5-8.0)
[2023-04-11 21:52] LABS: Troponin-I High Sensitivity < 2.7 ng/L (<3.5-35.0)
[2023-04-11] MEDS: iohexoL 350 MG/ML 100 ML INFUS..BTL IV (22:19)
[2023-04-11 22:32] LABS: Amphetamine Screen Urine Not Detected (Not Detect); Barbiturates, Urine Not Detected (Not Detect); Benzodiazepines Screen Urine Not Detected (Not Detect); Cannabinoid Screen Urine Not Detected (Not Detect); Cocaine Screen Urine Not Detected (Not Detect); Fentanyl, urine Not Detected (Not Detect); Opiate Screen Urine Not Detected (Not Detect); Phencyclidine Screen Urine Not Detected (Not Detect)
[2023-04-11 22:36] LABS: COVID-19 Test Negative (Negative); IDNOW Serial# 6674DD1D
[2023-04-11 22:40] LABS: IDNOW Serial# 58CA691E; Influenza A Negative (Negative); Influenza B2 Negative (Negative)
[2023-04-11 23:07] VITALS: BP 132/79; PULSE 82; RESP 17; O2SAT 100
--- NOTE | 2023-04-11 23:13 | ECG_ITS ---
Test Reason : arrythmia Blood Pressure : / mmHG Vent. Rate : 083 BPM Atrial Rate : 083 BPM P-R Int : 176 ms QRS Dur : 108 ms QT Int : 354 ms P-R-T Axes : 066 067 053 degrees QTc Int : 415 ms Normal sinus rhythm Incomplete right bundle branch block Nonspecific T wave abnormality Abnormal ECG When compared with ECG of 11-APR-2023 20:49, rate slower ST no longer depressed in Lateral leads Referred By: Naina Rice Electronically Signed By:SWAPNIL CASTAÑEDA
[2023-04-11 23:26] LABS: Appearance Urine Clear; Color Urine Yellow; Glucose Urine UA Negative (Negative); Leukocyte Esterase Urine Negative (Negative); Nitrite Urine Negative (Negative); Specific Gravity - Urine <= 1.005 (1.005-1.025); Urine Blood Negative (Negative); Urine Ketones Negative (Negative); Urine Protein Negative (Neg-Trace)
[2023-04-11] MEDS: Potassium Chloride ER 20 MEQ TAB.ER.PRT 60 MEQ PO (23:26)
[2023-04-11 23:30] VITALS: BP 124/82; PULSE 89
[2023-04-11 23:31] VITALS: BP 146/92; PULSE 92
[2023-04-11 23:32] VITALS: BP 151/97; PULSE 96
== END 2023-04-12 00:12 | disposition home or self-care (01) ==
PROVIDERS: Emergency Provider Student in an Organized Health Care Education/Training Program
DX: R00.2 Palpitations (principal); R07.9 Chest pain, unspecified; Z11.52 Encounter for screening for COVID-19
CPT/HCPCS: 36415; 71046; 71275; 80053; 80307; 81003; 83735; 84484; 85025; 87502; 87635; 93005; 99285; Q9967

== ENCOUNTER → 2023-04-11 20:49 | Outpatient (BNV) | payer MEDICAID, SELFPAY | PROVIDERS: Emergency Provider Student in an Organized Health Care Education/Training Program; Visit Provider Internal Medicine | DX: I45.81 Long QT syndrome (principal) | CPT/HCPCS: 93010 ==

== ENCOUNTER 2023-04-19 20:49 | Emergency (ER) | payer MEDICAID, SELFPAY ==
--- NOTE | 2023-04-19 | ECG_ITS ---
Test Reason : chest pain Blood Pressure : / mmHG Vent. Rate : 098 BPM Atrial Rate : 098 BPM P-R Int : 168 ms QRS Dur : 112 ms QT Int : 342 ms P-R-T Axes : 074 072 026 degrees QTc Int : 436 ms Normal sinus rhythm Incomplete right bundle branch block Borderline ECG When compared with ECG of 11-APR-2023 23:21, T wave inversion now evident in Inferior leads Referred By: Generic ED Physician Electronically Signed By:DANIA HAWK MD
--- NOTE | ~2023-04-19 | XR_ITS ---
EXAMINATION: XR CHEST CLINICAL INFORMATION: Chest pain. History of spontaneous pneumothorax. COMPARISON: CTA chest dated 04/11/2023 TECHNIQUE: Frontal view of the chest was obtained. FINDINGS: No significant abnormality is noted involving the heart, lungs, mediastinum, bony thorax or soft tissues. XR/XR chest 1V IMPRESSION: Unremarkable examination.
[2023-04-19 21:02] VITALS: BP 141/81; PULSE 105; RESP 20; TEMP 36.4; O2SAT 100; BMI 25.1
[2023-04-19 21:03] LABS: MANUAL DIFF FLAG NO
[2023-04-19 21:04] LABS: Basophils Absolute Auto 0.1 X10*3/uL (0.0-0.2); Basophils Percent Auto 0.9 % (0-2); Eosinophils Absolute Auto 0.1 X10*3/uL (0.0-0.4); Eosinophils Percent Auto 1.8 % (0-4); Hematocrit 45.5 % (42.0-52.0); Hemoglobin 15.8 g/dl (14.0-18.0); Imm Gran Abs Auto 0.01 X10*3/uL (0.00-0.03); Imm Gran Pct Auto 0.1 % (0.0-0.4); Lymphocytes Percent Auto 44.7 % (20-40); Mean Corpuscular HGB Conc 34.7 g/dl (31.0-36.0); Mean Corpuscular Hemoglobin 28.5 pg (27.0-33.0); Mean Platelet Volume 9.3 fL (9.4-12.4); Monocytes Absolute Auto 0.7 X10*3/uL (0.1-1.2); Monocytes Percent Auto 10.5 % (2-11); Neutrophils Absolute Auto 2.8 x10*3/uL (2.0-8.3); Platelet Count 335 X10*3/uL (160-400); Red Blood Count 5.55 X10*6/uL (4.60-5.80); Red Cell Distribution Width 12.1 % (11.0-16.0); White Blood Count 6.7 X10*3/uL (4.8-10.8)
[2023-04-19 21:29] LABS: Alanine Aminotransferase 53 U/L (0-40); Alkaline Phosphatase 66 U/L (39-117); Anion Gap 16 (12-20); Aspartate Amino Transferase 29 U/L (5-37); Bilirubin Total 0.5 mg/dL (0.0-1.0); Blood Urea Nitrogen 10 mg/dL (9-16); Calcium 9.9 mg/dL (8.4-10.2); Carbon Dioxide 21 mmol/L (22-29); Chloride 106 mmol/L (96-108); Creatinine Clr Calc Pharmacy 120.2; Estimated Glomerular Filt Rate > 60; Glucose Random 99 mg/dL (60-115); Potassium 3.1 mmol/L (3.3-5.1); Sodium 140 mmol/L (135-145); Total Protein 8.5 g/dL (6.5-8.0)
[2023-04-19 21:43] LABS: Troponin-I High Sensitivity < 2.7 ng/L (<3.5-35.0)
[2023-04-20 01:03] VITALS: PULSE 82
--- NOTE | 2023-04-20 01:12 | ED_ITS ---
HPI - Chest Pain General Chief Complaint: Chest Pain Stated Complaint: LeftChest pain Time Seen by Provider: 04/20/23 00:59 Source: patient Mode of arrival: ambulatory Limitations: no limitations History of Present Illness HPI narrative: Patient comes to the emergency room complaining of intermittent left-sided chest pain for 2 weeks. Patient said that if he moves certain ways or takes a big breath it hurts most. Patient does not have any shortness of breath. Patient states that he has history of spontaneous pneumothorax on the right side Related Data Previous Rx's Medication Instructions Recorded ciprofloxacin HCl 500 mg tablet 500 mg PO Q12H 7 days #14 tabs 08/11/21 ibuprofen 600 mg tablet 600 mg PO Q6H PRN pain #30 tabs 09/04/21 ondansetron 4 mg disintegrating 4 mg PO Q8H PRN nausea and 09/04/21 tablet vomiting #20 tabs oseltamivir 75 mg capsule (Tamiflu) 75 mg PO BID 5 days #10 caps 09/04/21 ibuprofen 600 mg tablet 600 mg PO TID PRN fever or pain 04/20/23 #20 tabs Allergies Allergy/AdvReac Type Severity Reaction Status Date / Time No Known Allergies Allergy Verified 04/09/23 08:47 [No Known Allergies*] Review of Systems 2 Review of Systems: Constitutional : No Weight loss, No Fever, No Chills, No Night Sweats, No Fatigue, No Malaise ENT/Mouth : No Hearing loss, No Ear Pain, No Nasal Congestion, No Sinus Pain, No Hoarseness, No sore throat, No Rhinorrhea, No Swallowing Difficulty Eyes: No Eye Pain, No Swelling, No Redness, No Foreign Body, No Discharge, No Vision Changes Cardiovascular : Complaining of left-sided chest pain with movement or deep inspiration, No SOB, No Dyspnea on Exertion, No Orthopnea, No Edema, No Palpitations Respiratory : No Cough, No Sputum, No Wheezing, No Smoke Exposure, No Dyspnea Gastrointestinal : No Nausea, No Vomiting, No Diarrhea, No Constipation, No abdominal Pain, No Hematochezia, No Melena Genitourinary : no irregular bleeding, No Dysuria, No Urinary Frequency, No Hematuria, No Urinary Incontinence, No Urgency, No Flank Pain, No Urinary Flow Changes, No Hesitancy Musculoskeletal : No joint pain, No Myalgias, No Joint Swelling Skin : No Skin Lesions, No rash Neuro : No Weakness, No Numbness, No Paresthesias, No Loss of Consciousness, No Dizziness, No Headache Psych : No Anxiety/Panic, No Depression, No SI/HI/AH/VH, No Social Issues, Heme/Lymph: No Bruising, No Bleeding,No Lymphadenopathy Endocrine : No Polyuria, No Polydipsia, No Temperature Intolerance [facility] Past Medical History Medical History Pneumothorax on right Social History Social History Alcohol intake: never Patient Tobacco Use Status: Never used Tobacco Advance Directives: No Advance Directives Information Provided: No Physical Exam 2 Vital Signs: Vital Signs: Last Vital Signs Temp 97.5 F 04/19/23 21:02 Pulse 105 H 04/19/23 21:02 Resp 20 04/19/23 21:02 BP 141/81 H 04/19/23 21:02 Pulse Ox 100 04/19/23 21:02 O2 Del Method Room Air 04/19/23 21:02 BMI result Body Mass Index 25.1 Const: Other: Appearance: Alert. Oriented X3. No acute distress. Eyes: Pupils equal, round and reactive to light. ENT: Pharynx normal. Neck: Normal inspection. Neck supple. No lymph nodes noted. No crepitus CVS: Normal heart rate and rhythm. Pulses normal. Normal S1 and S2 Respiratory: No respiratory distress. Breath sounds normal. No Wheezing. No rales Abdomen: Soft and nontender. No rigidity. No distention. Skin: Skin warm and dry. Normal skin color. Normal skin turgor. Extremities: No lower extremity edema. No Lacerations. No Rash Neuro: Oriented X 3. No motor deficit. No sensory deficit. Moving all extremities. No slurred speech. CN 2 through 12 grossly intact Psych: calm, cooperative, normal affect Medications Administered Discontinued Medications Generic Name Dose Route Start Last Admin Trade Name Freq PRN Reason Stop Dose Admin Potassium Chloride 60 meq 04/20/23 01:05 04/20/23 01:42 Potassium Chloride Packet 20 Meq Packet PO 04/20/23 01:06 60 meq ONCE ONE Administration Medical Decision Making Medical Decision Making MDM Narrative: -my interpretation of labs, normal hematology and chemistry other than slightly decreased potassium which was repleted p.o., normal troponin -my interpretation of chest x-ray: Normal sinus rhythm, heart rate 98, nonspecific T-wave inversions in lead 3, nonspecific less than [address] segment depression in V4 V5, incomplete right bundle-branch block, QTC 436 -my interpretation chest x-ray: No pneumothorax, no rib fracture -patient's source of pain likely pleurisy versus musculoskeletal. Differential Diagnosis Differential Diagnoses: The differential diagnosis associated with the presentation includes (Pleurisy, costochondritis, ACS, pneumothorax) Consult Healthcare Provider Management of the patient was discussed with: Hospitalist Lab Data 04/19/23 20:58 04/19/23 20:58 Labs: Lab Results 04/19/23 Range/Units 20:58 WBC 6.7 (4.8-10.8) X10*3/uL RBC 5.55 (4.60-5.80) X10*6/uL Hgb 15.8 (14.0-18.0) g/dl Hct 45.5 (42.0-52.0) % MCV 82.0 (80.0-98.0) fL MCH 28.5 (27.0-33.0) pg MCHC 34.7 (31.0-36.0) g/dl RDW 12.1 (11.0-16.0) % Plt Count 335 (160-400) X10*3/uL MPV 9.3 L (9.4-12.4) fL Immature Gran % (Auto) 0.1 (0.0-0.4) % Neut % (Auto) 42.0 L (45-73) % Lymph % (Auto) 44.7 H (20-40) % [place] % (Auto) 10.5 (2-11) % Eos % (Auto) 1.8 (0-4) % Baso % (Auto) 0.9 (0-2) % Lymph # (Auto) 3.0 (1.2-4.9) X10*3/uL [place] # (Auto) 0.7 (0.1-1.2) X10*3/uL Eos # (Auto) 0.1 (0.0-0.4) X10*3/uL Baso # (Auto) 0.1 (0.0-0.2) X10*3/uL Abs Immat Gran (auto) 0.01 (0.00-0.03) X10*3/uL Absolute Neuts (auto) 2.8 (2.0-8.3) x10*3/uL Absolute Nucleated RBC 0.000 (0.0-0.012) X10*3/uL Nucleated RBC % (auto) 0.0 (0.0-0.2) /100WBC Sodium 140 (135-145) mmol/L Potassium 3.1 L (3.3-5.1) mmol/L Chloride 106 (96-108) mmol/L Carbon Dioxide 21 L (22-29) mmol/L Anion Gap 16 (12-20) BUN 10 (9-16) mg/dL Creatinine 1.04 (0.5-1.4) mg/dL Estim Creat Clear Calc 120.2 Estimated GFR > 60 Random Glucose 99 (60-115) mg/dL Calcium 9.9 (8.4-10.2) mg/dL Total Bilirubin 0.5 (0.0-1.0) mg/dL AST 29 (5-37) U/L ALT 53 H (0-40) U/L Alkaline Phosphatase 66 (39-117) U/L Troponin I High Sens < 2.7 (<3.5-35.0) ng/L Total Protein 8.5 H (6.5-8.0) g/dL Albumin 5.0 (3.5-5.0) g/dL Discharge Plan Discharge Clinical Impression: Pleurisy Patient Disposition: Home, Self-Care Instructions: Chest Pain (ED) Additional Instructions: Please follow-up with your primary care physician tomorrow. If you continue having chest pain, please follow-up with her primary care physician. It is possible that her primary care physician may refer you to cardiology for Holter monitor for further evaluation if indicated. If you have any worsening or new symptoms, please return to the emergency room or call 911 Prescriptions: New ibuprofen 600 mg tablet 600 mg PO TID PRN (Reason: fever or pain) Qty: 20 0RF No Action ciprofloxacin HCl 500 mg tablet 500 mg PO Q12H 7 Days Qty: 14 0RF ibuprofen 600 mg tablet 600 mg PO Q6H PRN (Reason: pain) Qty: 30 0RF ondansetron 4 mg tablet,disintegrating 4 mg PO Q8H PRN (Reason: nausea and vomiting) Qty: 20 0RF oseltamivir [Tamiflu] 75 mg capsule 75 mg PO BID 5 Days Qty: 10 0RF
[2023-04-20] MEDS: Potassium Chloride Packet 20 MEQ PACKET 60 MEQ PO (01:42)
[2023-04-20 01:48] VITALS: BP 125/86; PULSE 78; RESP 16; O2SAT 97
[2023-04-20 01:51] VITALS: PULSE 78
== END 2023-04-20 02:05 | disposition home or self-care (01) ==
PROVIDERS: Emergency Provider Emergency Medicine
DX: R07.89 Other chest pain (principal); R09.1 Pleurisy; Z79.899 Other long term (current) drug therapy
CPT/HCPCS: 36415; 71045; 80053; 84484; 85025; 93005; 99283; 99285

== ENCOUNTER → 2023-04-19 20:54 | Outpatient (BNV) | payer MEDICAID, SELFPAY | PROVIDERS: Emergency Provider Emergency Medicine; Visit Provider Internal Medicine Cardiovascular Disease | DX: R07.89 Other chest pain (principal) | CPT/HCPCS: 93010 ==